=== PATIENT | female | born 1965 | race Caucasian/White ===

== ENCOUNTER 2019-10-26 11:44 | Outpatient (CLI) | payer OTHER, SELFPAY ==
--- NOTE | 2019-10-26 | XR_ITS ---
WS: [id number] LEFT CALCANEUS TECHNIQUE: Lateral and tangential view. HISTORY: ACHILLES TENDINOSIS COMPARISON: None available. No fracture. Hypertrophic bone formation and osteophyte formation involving the Achilles tendon attac hment to the calcaneus. There is also adjacent soft tissue swelling associated with the retrocalcanea l soft tissues suggesting tendinitis. XR/XR calcaneus LT min 2V [id number] IMPRESSION: Findings consistent with Achilles insertional tendinitis.
== END 2019-10-26 11:45 | disposition home or self-care (01) ==
LOC: RADOUTREAD 15:15
PROVIDERS: Family Provider Family Medicine; PCP Family Medicine; Visit Provider Family Medicine
DX: Z76.89 Persons encountering health services in other specified circumstances (principal)

== ENCOUNTER 2019-12-16 16:22 | Outpatient (CLI) | payer OTHER, SELFPAY | END 2019-12-16 16:23 | disposition home or self-care (01) | LOC: SPT 16:23 | PROVIDERS: Family Provider Family Medicine; PCP Family Medicine; Visit Provider Podiatrist Foot & Ankle Surgery | DX: Z46.89 Encounter for fitting and adjustment of other specified devices (principal); M76.62 Achilles tendinitis, left leg | CPT/HCPCS: L4361 ==

== ENCOUNTER → 2020-03-30 16:21 | Outpatient (BNVA) | payer OTHER, SELFPAY | PROVIDERS: Family Provider Family Medicine; PCP Family Medicine; Visit Provider Podiatrist Foot & Ankle Surgery | DX: M76.62 Achilles tendinitis, left leg (principal) | CPT/HCPCS: 73650 ==

== ENCOUNTER 2020-04-07 10:24 | Outpatient (RCR) | payer OTHER, SELFPAY | END 2020-05-06 23:59 | disposition home or self-care (01) | LOC: SPT 10:24 | PROVIDERS: PCP Family Medicine; Referring Provider Podiatrist Foot & Ankle Surgery; Visit Provider Podiatrist Foot & Ankle Surgery | DX: M76.62 Achilles tendinitis, left leg (principal) | CPT/HCPCS: 97033; 97035; 97110; 97140; 97161 ==

== ENCOUNTER 2020-05-28 19:55 | Emergency (ER) | payer OTHER, SELFPAY ==
[2020-05-28 20:55] VITALS: BP 189/116; PULSE 97; RESP 18; TEMP 36.8; O2SAT 96; BMI 39.1
--- NOTE | 2020-05-28 21:08 | W.ED.GENADLT ---
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 she said today her throat started hurting and she started feeling achy she is not running a fever not any loss of taste or smell she is wants make sure that she does not have covid complaint: Muscle aches Onset (ago): hour(s) Associated symptoms: Reports other (Sore throat muscle aches); Deny chest pain, dyspnea, headache(s), nausea, rash or vomiting Review of Systems Narrative: Has been around people with test positive for Cobin Const: Reports: body aches; Denies: fever(s) or chills Eyes: Denies: change in vision or blurry vision ENMT: Reports: throat pain; Denies: nasal congestion Card: Denies: chest pain or dyspnea on exertion Resp: Denies: dyspnea, productive cough or non-productive cough GI: Denies: abdominal pain, nausea or vomiting Musc: Denies: extremity pain Skin/Breast: Denies: rash Neuro: Denies: headache(s) Psych: Denies: anxiety or depression Ramakrishna/Lymph: Denies: easy bruising PFSH ED PFSH: Surgical History History of tonsillectomy Family History Mother Heart disease Dementia Diabetes Hypertension Lung disease Stroke Father Heart disease Family/Other Cancer Denies family history of CAD (coronary artery disease) Clotting disorder Hyperlipidemia Psychiatric illness Chronic kidney disease (CKD) Suicide Anesthesia complication Bleeding disorder Family history of premature coronary artery disease Social History Smoking and tobacco status: never smoked Alcohol intake: never Current occupational status: employed Physical Exam Const: COMMON NORMALS: no acute distress, average body habitus and patient oriented x3 HENMT: COMMON NORMALS: normocephalic HEAD & SCALP: normal to inspection and normocephalic FACE & SINUS: normal facial exam Eye: COMMON NORMALS: conjunctivae normal GENERAL EYE: appearance normal, both eyes and all related structures CONJUNCTIVA: Yes conjunctivae normal Neck/C-Spine: COMMON NORMALS: no JVD Chest: COMMONS NORMALS: normal inspection of the chest Resp: COMMON NORMALS: normal respiratory effort and clear to auscultation bilaterally AUSCULTATION: clear to auscultation bilaterally Cardio: COMMON NORMALS: no JVD, regular rate and regular rhythm RATE: regular rate RHYTHM: regular rhythm GI: COMMON NORMALS: Normal to inspection, nondistended, normoactive bowel sounds present Extremity: COMMON NORMALS: normal to inspection and full ROM Neuro: COMMON NORMALS: patient oriented x3 Course Vital Signs: Vital signs: Vital Signs Temperature 98.3 F 05/28/20 20:55 Pulse Rate 97 05/28/20 20:55 Respiratory Rate 18 05/28/20 20:55 Blood Pressure 189/116 05/28/20 20:55 Pulse Oximetry 96 05/28/20 20:55 Discharge Plan Discharge Prescriptions: No Action Women's 50 Plus Multivitamin 400 mcg-500 mg calcium-20 mcg tablet PO RF: 0 glucosamine HCl PO RF: 0 (DME) Cam walker Qty: 1 RF: 0 Coding Level of Care Code ED Parasitology Teacher for Chg Jenni
[2020-05-28 21:27] VITALS: BP 165/95; PULSE 74; RESP 18; O2SAT 99
[2020-05-30 12:03] LABS: Quest SARS-CoV-2 RNA NOT DETECTED (NOT DETECTED)
--- NOTE | 2020-05-30 16:20 | PC.NURSE ---
Pt called and notified of negative COVID results.
== END 2020-05-28 21:31 | disposition home or self-care (01) ==
PROVIDERS: Emergency Provider Nurse Practitioner Family; PCP Family Medicine
DX: J02.9 Acute pharyngitis, unspecified (principal)
CPT/HCPCS: 12345; 36415; 87635; 99282

== ENCOUNTER 2020-05-29 15:34 | Emergency (ER) | payer OTHER, SELFPAY ==
[2020-05-29 15:53] VITALS: BP 175/85; PULSE 95; RESP 18; TEMP 37.2; O2SAT 97; BMI 39.1
--- NOTE | 2020-05-29 15:55 | XRR_ITS ---
PROCEDURE INFORMATION: Exam: XR Chest, 1 View Exam date and time: 05/29/2020 4:17 PM Age: 54 years old Clinical indication: Cough and shortness of breath. TECHNIQUE: Imaging protocol: XR of the chest Views: 1 view. COMPARISON: CR Chest 1 [place] [id number] 09/07/2016 2:29 PM FINDINGS: Lungs: No focal peripheral lung consolidation, air bronchogram formation, or silhouette sign. Pleural space: No pleural effusion or pneumothorax. Heart/Mediastinum: The cardiac silhouette is not enlarged. The mediastinal contours are normal. Bones/joints: No acute osseous abnormality. XR/XR chest 1V portable [id number] IMPRESSION: No pneumonia.
--- NOTE | 2020-05-29 15:56 | ED_ITS ---
HPI - SOB/Dyspnea General: Chief Complaint: Shortness of Breath/Dyspnea Stated Complaint: sob Time Seen by Provider: 05/29/20 15:50 Source: patient Mode of arrival: ambulatory Limitations: no limitations History of Present Illness: HPI Narrative: Anju is a 54-year-old female states she has had a cough along with shortness of breath over the last 3 days. Patient has had COVID exposure. She was seen here last night had a swab and results are not back. She states she is continued to cough and does have dyspnea. Patient's been afebrile. Her oxygen saturation here is 98% on room air. She is in no distress at this time. MD elicited complaint: shortness of breath Associated symptoms: Deny abdominal pain, chest pain, fever(s), nausea or vomiting Review of Systems Const: Denies: fever(s), chills, body aches or change in appetite Eyes: Denies: blurry vision or eye discomfort ENMT: Denies: throat pain or dental pain Card: Denies: chest pain Resp: Reports: dyspnea and non-productive cough GI: Denies: abdominal pain, nausea, vomiting or diarrhea : Denies: dysuria Musc: Denies: neck pain or back pain Skin/Breast: Denies: rash Neuro: Denies: headache(s) Psych: Denies: depression Ramakrishna/Lymph: Denies: easy bruising All/Imm: Denies: urticaria PFSH ED PFSH: Surgical History History of tonsillectomy Family History Mother Heart disease Dementia Diabetes Hypertension Lung disease Stroke Father Heart disease Family/Other Cancer Denies family history of CAD (coronary artery disease) Clotting disorder Hyperlipidemia Psychiatric illness Chronic kidney disease (CKD) Suicide Anesthesia complication Bleeding disorder Family history of premature coronary artery disease Social History Smoking and tobacco status: never smoked Alcohol intake: never Current occupational status: employed Physical Exam Const: COMMON NORMALS: no acute distress, patient oriented x3 and healthy appearing HENMT: COMMON NORMALS: normocephalic and atraumatic HEAD & SCALP: normocephalic and atraumatic Eye: COMMON NORMALS: Equal, round and reactive pupils present and EOMs intact bilaterally PUPIL: Yes Equal, round and reactive pupils present Neck/C-Spine: COMMON NORMALS: full ROM and supple Chest: COMMONS NORMALS: normal inspection of the chest and normal palpation of entire chest wall Resp: COMMON NORMALS: normal respiratory effort, No retractions, No use of accessory muscles and clear to auscultation bilaterally AUSCULTATION: clear to auscultation bilaterally Cardio: COMMON NORMALS: regular rate, regular rhythm and No murmurs present (Cardio) RATE: regular rate RHYTHM: regular rhythm GI: COMMON NORMALS: Normal to inspection, nondistended, normoactive bowel sounds present, Soft to palpation, non-tender and no masses PALPATION: Yes Soft to palpation Extremity: COMMON NORMALS: normal to inspection and full ROM Neuro: COMMON NORMALS: patient oriented x3, moves all extremities and no focal motor deficits Psych: COMMON NORMALS: mental status grossly normal, Normal thought process present and cooperative THOUGHT PROCESS: Normal thought process present Skin: COMMON NORMALS: no rashes or lesions noted and no wounds GENERAL SKIN EXAM: no rashes or lesions noted Course Vital Signs: Vital signs: Vital Signs Temperature 98.9 F 05/29/20 15:53 Pulse Rate 95 05/29/20 15:53 Respiratory Rate 18 05/29/20 15:53 Blood Pressure 175/85 05/29/20 15:53 Pulse Oximetry 97 05/29/20 15:53 MDM - SOB/Dyspnea MDM Narrative: Medical decision making narrative: Patient presents here with dyspnea and was tested for coverage yesterday. Patient's pulse ox here is normal and blood work and x-ray are normal as well. Patient given Decadron here. She is to follow-up with her testing which should result tomorrow. She is not in any distress and is stable for discharge. She is return if worsening. Lab Data: Labs: Lab Results 05/29/20 05/29/20 Range/Units 16:45 16:45 WBC 10.3 H (4.0-10.0) 10^3/ uL RBC 4.41 (4.1-5.3) 10^6/u L Hgb 13.2 (11.5-15.3) g/dL Hct 41.1 (37.0-47.0) % MCV 93.2 (81-99) fL MCH 29.9 (28.0-34.0) pg MCHC 32.1 (30.0-36.0) g/dL RDW 13.5 (12.1-15.1) % Plt Count 286 (130-400) 10^3/c mm MPV 10.0 (7.4-10.4) fL Neut % (Auto) 64.6 % Lymph % (Auto) 24.7 % [place] % (Auto) 7.4 % Eos % (Auto) 1.9 % Baso % (Auto) 1.0 % Neut # (Auto) 6.68 (1.8-7.7) 10^3/u L Lymph # (Auto) 2.6 (0.8-4.8) 10^3/u L [place] # (Auto) 0.8 (0.2-0.9) 10^3/u L Eos # (Auto) 0.2 (0.0-0.8) 10^3/u L Baso # (Auto) 0.1 (0.0-0.1) 10^3/u L Nucleated RBC % (a uto) 0 % Nucleated RBCs # 0.0 /100WBC Sodium 136 (136-145) mmol/L Potassium 4.0 (3.5-5.1) mmol/L Chloride 104 (98-107) mmol/L Carbon Dioxide 23 (22-29) mmol/L Anion Gap 13.0 (5-19) BUN 14 (6-20) mg/dL Creatinine 0.7 (0.5-0.9) mg/dL GFR Calculation 86.6 L (90-130) mL/min Glucose 112 (65-115) mg/dL Calculated Osmolal ity 279 L (285-295) mOsm/k g Calcium 9.2 (8.5-10.5) mg/dL Total Bilirubin 0.3 (0.15-1.2) mg/dL AST 22 (0-32) U/L ALT 22 (0-33) U/L Alkaline Phosphata se 92 (35-105) IU/L NT-Pro-B Natriuret Pep 57 (0-125) pg/mL Total Protein 6.8 (6.6-8.7) g/dL Albumin 3.9 (3.5-5.2) g/dL Globulin 2.9 (1.3-4.6) g/dL Imaging Data^: CXR: Attestation: I personally reviewed and interpreted this imaging study as follows: My impression: No acute abnormality Discharge Plan Discharge Patient Disposition: Home Condition: Stable Prescriptions: No Action Women's 50 Plus Multivitamin 400 mcg-500 mg calcium-20 mcg tablet 1 tab PO DAILY RF: 0 (DME) Cam walker Qty: 1 RF: 0 Tylenol 325 mg Tablet 325 - 650 mg PO QID PRN (Reason: PAIN/FEVER) RF: 0 Discharge Orders: Discharge Order (Routine); Ordered 05/29/20 Ordered By: Carolyn Garcia Referrals: Dewayne Rai MD [Primary Care Provider] - 4-7 days Discharge Diet: Advance as tolerated Discharge Activity: Resume usual activity Patient Instructions: Upper Respiratory Infection (ED) Coding Level of Care Code ED Ceramic Chemist for Chg Fwd Exam Comprehensive
[2020-05-29 16:55] LABS: Basophils # 0.1 10^3/uL (0.0-0.1); Eosinophils # 0.2 10^3/uL (0.0-0.8); Eosinophils % 1.9 %; Hematocrit 41.1 % (37.0-47.0); Hemoglobin 13.2 g/dL (11.5-15.3); Lymphocytes # 2.6 10^3/uL (0.8-4.8); Lymphocytes % 24.7 %; Mean Corpuscular HGB Conc 32.1 g/dL (30.0-36.0); Mean Corpuscular Hemoglobin 29.9 pg (28.0-34.0); Mean Corpuscular Volume 93.2 fL (81-99); Monocytes # 0.8 10^3/uL (0.2-0.9); Monocytes % 7.4 %; Neutrophils # 6.68 10^3/uL (1.8-7.7); Neutrophils % 64.6 %; Nucleated Red Blood Cells % 0 %; Platelet Count 286 10^3/cmm (130-400); Red Blood Count 4.41 10^6/uL (4.1-5.3); Red Cell Distribution Width 13.5 % (12.1-15.1); White Blood Count 10.3 10^3/uL (4.0-10.0)
[2020-05-29 17:21] LABS: Alanine Aminotransferase 22 U/L (0-33); Albumin Level 3.9 g/dL (3.5-5.2); Alkaline Phosphatase 92 IU/L (35-105); Aspartate Amino Transferase 22 U/L (0-32); Blood Urea Nitrogen 14 mg/dL (6-20); Calcium 9.2 mg/dL (8.5-10.5); Carbon Dioxide 23 mmol/L (22-29); Chloride 104 mmol/L (98-107); Globulin 2.9 g/dL (1.3-4.6); Glomerular Filtration Rate 86.6 mL/min (90-130); Glucose 112 mg/dL (65-115); NT Pro B Type Natriuretic Pept 57 pg/mL (0-125); Osmolality Calculated 279 mOsm/kg (285-295); Sodium 136 mmol/L (136-145); Total Bilirubin 0.3 mg/dL (0.15-1.2); Total Protein 6.8 g/dL (6.6-8.7)
[2020-05-29 18:14] VITALS: BP 134/72; PULSE 72; RESP 18; O2SAT 98
== END 2020-05-29 18:15 | disposition home or self-care (01) ==
PROVIDERS: Emergency Provider Emergency Medicine; PCP Family Medicine
DX: R06.02 Shortness of breath (principal)
CPT/HCPCS: 12345; 36415; 71045; 80053; 83880; 85025; 96374; 99281; 99283

== ENCOUNTER 2021-04-27 14:41 | Emergency (ER) | payer OTHER, SELFPAY ==
[2021-04-27 14:47] VITALS: BP 160/93; PULSE 87; RESP 21; TEMP 36.9; O2SAT 96; BMI 39.1
[2021-04-27 14:56] VITALS: BP 160/93; PULSE 94; RESP 20; TEMP 36.9; O2SAT 94
--- NOTE | 2021-04-27 15:44 | USR_ITS ---
PROCEDURE INFORMATION: Exam: US Nonobstetric Pelvis; Complete Exam date and time: 04/27/2021 3:44 PM Age: 55 years old Clinical indication: Menstruation abnormalities; Postmenopausal bleeding; Patient HX: Last menses 5 years ago; Additional info: Vaginal bleeding. Sudden onset painless TECHNIQUE: Imaging protocol: Transabdominal pelvic nonobstetric ultrasound. Complete exam. Real time ultrasound with image documentation. COMPARISON: No relevant prior studies available. FINDINGS: Uterus/cervix: The uterus measures 6.7 x 3.7 x 4.0 cm. Endometrial thickness is 8.3 mm. 2.7 x 1.7 x 2.0 cm oval hyperechoic region within the endometrium of the lower uterine segment and possibly extending into the superior cervix. There are multiple small cystic regions within this structure measuring up to 5 mm and visible Doppler vascular flow. Right adnexa: The right ovary is not visualized. Left adnexa: The left ovary is not visualized. Intraperitoneal space: No intraperitoneal fluid. Urinary bladder: Normal. US/US pelvic with transvaginal IMPRESSION: 1. 2.7 x 1.7 x 2.0 cm oval hypoechoic region within the lower endometrium and possibly superior cervix, containing multiple cystic regions. This could represent a polyp or a focal region of endometrial hyperplasia. Correlation with the patient's recent biopsy results recommended. 2. Nonvisualized ovaries.
[2021-04-27 16:07] LABS: Basophils # 0.1 10^3/uL (0.0-0.1); Basophils % 0.8 %; Eosinophils # 0.1 10^3/uL (0.0-0.8); Eosinophils % 0.8 %; Hematocrit 40.3 % (37.0-47.0); Hemoglobin 12.8 g/dL (11.5-15.3); Lymphocytes # 1.8 10^3/uL (0.8-4.8); Lymphocytes % 17.2 %; Mean Corpuscular HGB Conc 31.8 g/dL (30.0-36.0); Mean Corpuscular Hemoglobin 29.2 pg (28.0-34.0); Mean Platelet Volume 10.6 fL (7.4-10.4); Monocytes # 0.6 10^3/uL (0.2-0.9); Monocytes % 5.8 %; Neutrophils # 7.65 10^3/uL (1.8-7.7); Nucleated Red Blood Cells % 0 %; Platelet Count 292 10^3/cmm (130-400); Red Blood Count 4.38 10^6/uL (4.1-5.3); Red Cell Distribution Width 13.7 % (12.1-15.1); White Blood Count 10.2 10^3/uL (4.0-10.0)
[2021-04-27 16:19] LABS: Alanine Aminotransferase 18 U/L (0-33); Albumin Level 4.1 g/dL (3.5-5.2); Alkaline Phosphatase 104 IU/L (35-105); Anion Gap 16.2 (5-19); Aspartate Amino Transferase 18 U/L (0-32); Blood Urea Nitrogen 12 mg/dL (6-20); Carbon Dioxide 21 mmol/L (22-29); Chloride 101 mmol/L (98-107); Creatinine Clr Calc Pharmacy 115.2305; Globulin 2.4 g/dL (1.3-4.6); Glomerular Filtration Rate 86.2 mL/min (90-130); Glucose 151 mg/dL (65-115); Osmolality Calculated 281 mOsm/kg (285-295); Potassium 4.2 mmol/L (3.5-5.1); Sodium 134 mmol/L (136-145); Total Bilirubin 0.3 mg/dL (0.15-1.2); Total Protein 6.5 g/dL (6.6-8.7)
--- NOTE | 2021-04-27 16:34 | W.ED.FEMALGU ---
HPI - Female Genitourinary General: Chief complaint: Vaginal Bleeding Stated complaint: VAGINAL BLEED Time Seen by Provider: 04/27/21 14:53 Source: patient Mode of arrival: EMS Limitations: no limitations History of Present Illness: HPI Narrative: Patient is a 55-year-old female who is 5 years postmenopausal and who presents to the emergency department with vaginal bleeding that started yesterday. She said it started yesterday and has not stopped since. In the last 24 hours she has used about 10 pads in total. She has associated lightheadedness. She went to see the hybrid technologist today and she says some tissue was taken out of her vagina following which she felt very faint and the hybrid technologist then called for an ambulance to bring her to the emergency department to be evaluated. She told the bridge design engineer that she was saturating 4 pads an hour but she told me emphatically that she has used about 10 pads in the last 24 hours. MD elicited complaint: vaginal bleeding Onset (ago): day(s) (1) Severity: moderate Quality of pain: other (painless) Vaginal discharge: none Vaginal bleeding: moderate Exacerbating factors: none Relieving factors: none Associated symptoms: Reports vaginal bleeding and weakness; Deny abdominal pain, short of breath, fevers/chills, headache(s), nausea, rash, seizures, syncope or vaginal discharge Treatment prior to arrival: none Patient : No Review of Systems General: Reports: 10 or more systems reviewed and unremarkable except in HPI and below Card: Denies: syncope GI: Denies: abdominal pain or nausea : Denies: vaginal discharge Neuro: Denies: headache(s) [facility] ED PFSH: Surgical History (Reviewed 04/27/21 @ 16:53 by Cesia Harrington MD, [facility]) History of tonsillectomy Family History (Reviewed 04/27/21 @ 16:53 by Cesia Harrington MD, [facility] [place]) Mother Heart disease Dementia Diabetes Hypertension Lung disease Stroke Father Heart disease Family/Other Cancer Denies family history of CAD (coronary artery disease) Clotting disorder Hyperlipidemia Psychiatric illness Chronic kidney disease (CKD) Suicide Anesthesia complication Bleeding disorder Family history of premature coronary artery disease Social History (Reviewed 04/27/21 @ 16:53 by Cesia Harrington MD, [facility] [place]) Smoking and tobacco status: never smoked Alcohol intake: never Current occupational status: employed Physical Exam Const: COMMON NORMALS: no acute distress, average body habitus, patient oriented x3, no limitations, healthy appearing, alert and well nourished HENMT: COMMON NORMALS: normocephalic, atraumatic and moist oral mucous membranes HEAD & SCALP: normocephalic and atraumatic Eye: COMMON NORMALS: Equal, round and reactive pupils present, EOMs intact bilaterally, conjunctivae normal and no scleral icterus CONJUNCTIVA: Yes conjunctivae normal PUPIL: Yes Equal, round and reactive pupils present Neck/C-Spine: COMMON NORMALS: no meningeal signs and no JVD Resp: COMMON NORMALS: normal respiratory effort, No retractions, No use of accessory muscles, clear to auscultation bilaterally and percussion normal AUSCULTATION: clear to auscultation bilaterally PERCUSSION: percussion normal Cardio: COMMON NORMALS: no JVD, regular rate, regular rhythm, S1 normal heart sound present, S2 normal heart sound present, No gallops present (Cardio), No clicks present (Cardio), No murmurs present (Cardio), No rub (Cardio) and Peripheral pulses 2+ throughout RATE: regular rate RHYTHM: regular rhythm HEART SOUNDS: S1 normal heart sound present and S2 normal heart sound present PERIPHERAL PULSES: Peripheral pulses 2+ throughout GI: COMMON NORMALS: Normal to inspection, nondistended, normoactive bowel sounds present, Soft to palpation, non-tender, No hepatosplenomegaly present, no masses and no bruits PALPATION: Yes Soft to palpation and Yes No hepatosplenomegaly present : SPECULUM EXAM - VAGINA: Yes vaginal bleeding OB/EXTERNAL & SPECULUM: vaginal bleeding Extremity: COMMON NORMALS: normal to inspection, full ROM, capillary refill normal, no calf tenderness and no pedal edema Neuro: COMMON NORMALS: patient oriented x3 SENSORIUM/ORIENTATION: Yes alert MENINGEAL SIGNS: Yes no meningeal signs Skin: COMMON NORMALS: no rashes or lesions noted, no wounds, turgor normal, no jaundice, no petechiae and no mottling GENERAL SKIN EXAM: no rashes or lesions noted and turgor normal Course Reevaluation(s): Reevaluation #1: Discussed her lab and imaging findings with her as well as my conversation with the bridge design engineer. Hemoglobin normal, ultrasound unremarkable for acute findings, bridge design engineer wants to see her in 2 weeks so she can discuss results of the endometrial biopsy with her. We will discharge her home with no new orders. She voiced understanding and is in agreement with the plan. Time: 17:58 Consultations: Consultation #1: Discussed the patient with Dr. Nuñez, bridge design engineer who saw this patient earlier today. She explained to me that she performed an endometrial biopsy on the patient and that because the patient had told that she was saturating 4 pads per hour she was concerned and sent her to the emergency department to be evaluated. I discussed her lab findings with the physician and she would like to see the patient in the office in 2 weeks to discuss the results of the endometrial biopsy with her. Time: 16:41 Vital Signs: Vital signs: Vital Signs Temperature 98.5 F 04/27/21 14:56 Pulse Rate 91 04/27/21 18:15 Respiratory Rate 18 04/27/21 18:15 Blood Pressure 147/81 04/27/21 17:07 Pulse Oximetry 96 04/27/21 18:15 MDM - Female MDM Narrative: Medical decision making narrative: 55-year-old female patient who presents to the emergency department with postmenopausal bleeding. Evaluation in the emergency department is unremarkable including normal hemoglobin. She has been seen by the bridge design engineer earlier today and an endometrial biopsy has been performed on this patient. She is discharged home with no new orders. Medical Records: Attestation: I reviewed the patient's medical records. Lab Data: Attestation: I reviewed the patient's lab results. Labs: Lab Results 04/27/21 04/27/21 04/27/21 Range/Units 15:20 15:20 15:20 WBC 10.2 H (4.0-10.0) 10^3/ uL RBC 4.38 (4.1-5.3) 10^6/u L Hgb 12.8 (11.5-15.3) g/dL Hct 40.3 (37.0-47.0) % MCV 92.0 (81-99) fL MCH 29.2 (28.0-34.0) pg MCHC 31.8 (30.0-36.0) g/dL RDW 13.7 (12.1-15.1) % Plt Count 292 (130-400) 10^3/c mm MPV 10.6 H (7.4-10.4) fL Neut % (Auto) 75.0 % Lymph % (Auto) 17.2 % [place] % (Auto) 5.8 % Eos % (Auto) 0.8 % Baso % (Auto) 0.8 % Neut # (Auto) 7.65 (1.8-7.7) 10^3/u L Lymph # (Auto) 1.8 (0.8-4.8) 10^3/u L [place] # (Auto) 0.6 (0.2-0.9) 10^3/u L Eos # (Auto) 0.1 (0.0-0.8) 10^3/u L Baso # (Auto) 0.1 (0.0-0.1) 10^3/u L Nucleated RBC % (a uto) 0 % Nucleated RBCs # 0.0 /100WBC PT (12.1-14.9) SECO NDS INR (0.8-1.2) Sodium 134 L (136-145) mmol/L Potassium 4.2 (3.5-5.1) mmol/L Chloride 101 (98-107) mmol/L Carbon Dioxide 21 L (22-29) mmol/L Anion Gap 16.2 (5-19) BUN 12 (6-20) mg/dL Creatinine 0.7 (0.5-0.9) mg/dL GFR Calculation 86.2 L (90-130) mL/min Glucose 151 H (65-115) mg/dL Estimat Average Gl ucose Hemoglobin A1c (4.0-6.0) % Calculated Osmolal ity 281 L (285-295) mOsm/k g Calcium 9.0 (8.5-10.5) mg/dL Total Bilirubin 0.3 (0.15-1.2) mg/dL AST 18 (0-32) U/L ALT 18 (0-33) U/L Alkaline Phosphata se 104 (35-105) IU/L Total Protein 6.5 L (6.6-8.7) g/dL Albumin 4.1 (3.5-5.2) g/dL Globulin 2.4 (1.3-4.6) g/dL TSH (0.27-4.20) uIU/ mL Blood Type O Negative Rho(D) Type Negative / 0 Antibody Screen Negative 0704/27/21 04/27/21 Range/Units 15:20 15:20 16:38 WBC (4.0-10.0) 10^3/ uL RBC (4.1-5.3) 10^6/u L Hgb (11.5-15.3) g/dL Hct (37.0-47.0) % MCV (81-99) fL MCH (28.0-34.0) pg MCHC (30.0-36.0) g/dL RDW (12.1-15.1) % Plt Count (130-400) 10^3/c mm MPV (7.4-10.4) fL Neut % (Auto) % Lymph % (Auto) % [place] % (Auto) % Eos % (Auto) % Baso % (Auto) % Neut # (Auto) (1.8-7.7) 10^3/u L Lymph # (Auto) (0.8-4.8) 10^3/u L [place] # (Auto) (0.2-0.9) 10^3/u L Eos # (Auto) (0.0-0.8) 10^3/u L Baso # (Auto) (0.0-0.1) 10^3/u L Nucleated RBC % (a uto) % Nucleated RBCs # /100WBC PT 13.80 (12.1-14.9) SECO NDS INR 1.03 (0.8-1.2) Sodium (136-145) mmol/L Potassium (3.5-5.1) mmol/L Chloride (98-107) mmol/L Carbon Dioxide (22-29) mmol/L Anion Gap (5-19) BUN (6-20) mg/dL Creatinine (0.5-0.9) mg/dL GFR Calculation (90-130) mL/min Glucose (65-115) mg/dL Estimat Average Gl ucose 120 Hemoglobin A1c 5.8 (4.0-6.0) % Calculated Osmolal ity (285-295) mOsm/k g Calcium (8.5-10.5) mg/dL Total Bilirubin (0.15-1.2) mg/dL AST (0-32) U/L ALT (0-33) U/L Alkaline Phosphata se (35-105) IU/L Total Protein (6.6-8.7) g/dL Albumin (3.5-5.2) g/dL Globulin (1.3-4.6) g/dL TSH 2.01 (0.27-4.20) uIU/ mL Blood Type Rho(D) Type Antibody Screen Imaging Data: US: Attestation: I personally reviewed and interpreted this imaging study as follows: Radiologist's impression: [address] [id number] ReportSigned Patient: Anju Obando #: [id number]: [id number]#:[id number]/Sex: 55 / FADM Date: 04/27/21Loc: ERRoom/Bed:Attending Dr: Ordering Provider/Ordering MD: Cesia Harrington MD, [facility] Date of Service: 04/27/21 Procedure(s): US pelvic with transvaginal Accession Number(s): [id number] Report Number: [id number] PROCEDURE INFORMATION: Exam: US Nonobstetric Pelvis; Complete Exam date and time: 04/27/2021 3:44 PM Age: 55 years old Clinical indication: Menstruation abnormalities; Postmenopausal bleeding; Patient HX: Last menses 5 years ago; Additional info: Vaginal bleeding. Sudden onset painless TECHNIQUE: Imaging protocol: Transabdominal pelvic nonobstetric ultrasound. Complete exam. Real time ultrasound with image documentation. COMPARISON: No relevant prior studies available. FINDINGS: Uterus/cervix: The uterus measures 6.7 x 3.7 x 4.0 cm. Endometrial thickness is 8.3 mm. 2.7 x 1.7 x 2.0 cm oval hyperechoic region within the endometrium of the lower uterine segment and possibly extending into the superior cervix. There are multiple small cystic regions within this structure measuring up to 5 mm and visible Doppler vascular flow. Right adnexa: The right ovary is not visualized. Left adnexa: The left ovary is not visualized. Intraperitoneal space: No intraperitoneal fluid. Urinary bladder: Normal. US/US pelvic with transvaginal IMPRESSION: 1. 2.7 x 1.7 x 2.0 cm oval hypoechoic region within the lower endometrium and possibly superior cervix, containing multiple cystic regions. This could represent a polyp or a focal region of endometrial hyperplasia. Correlation with the patient's recent biopsy results recommended. 2. Nonvisualized ovaries. Dictated By:Jose Miguel Borrego By:Jose Miguel Borrego Date/Time:04/27/211717DD/ 16 Discharge Plan Discharge Patient Disposition: Home Clinical Impression: Post-menopausal bleeding Condition: Stable Prescriptions: Continued Women's 50 Plus Multivitamin 400 mcg-500 mg calcium-20 mcg tablet 1 tab PO DAILY RF: 0 glucosamine HCl 500 mg tablet 500 mg PO DAILY RF: 0 acetaminophen [Tylenol] 325 mg Tablet 325 - 650 mg PO QID PRN (Reason: PAIN/FEVER) RF: 0 ProAir HFA 90 mcg/actuation Hfa Aerosol Inhaler 2 puff INHALATION QID PRN (Reason: SHORTNESS OF BREAH) RF: 0 Discharge Orders: Discharge ED (Routine); Ordered 04/27/21 Ordered By: Cesia Harrington Referrals: Desiree Nuñez MD [Physician] - 2 weeks Discharge Diet: Usual diet Discharge Activity: Increase activity as tolerated Patient Instructions: Abnormal Uterine Bleeding Activity Restrictions/Additional Instructions: Return for any new or worsening symptoms. Follow-up with Dr. Nuñez in 2 weeks. Call her office tomorrow to schedule an appointment. She wants to go over the results of the test that she performed in the office and the ultrasound done here in the emergency department with you. Continue your home medications. Coding Level of Care Code ED Hired Hand for Chg Fwd Exam Comprehensive
[2021-04-27 17:06] LABS: Thyroid Stimulating Hormone 2.01 uIU/mL (0.27-4.20)
[2021-04-27 17:07] VITALS: BP 147/81; PULSE 89; RESP 18; O2SAT 96
[2021-04-27 17:07] LABS: INR 1.03 (0.8-1.2)
[2021-04-27 18:14] VITALS: PULSE 91; RESP 18; O2SAT 96
[2021-04-27 18:15] VITALS: PULSE 91; RESP 18; O2SAT 96
[2021-04-27 19:10] LABS: Estmated Average Glucose 120; Hemoglobin A1C 5.8 % (4.0-6.0)
== END 2021-04-27 18:16 | disposition home or self-care (01) ==
PROVIDERS: Emergency Provider Family Medicine; PCP Family Medicine
DX: N95.0 Postmenopausal bleeding (principal)
CPT/HCPCS: 76830; 76856; 80053; 83036; 84443; 85025; 85610; 86850; 86900; 88175; 88305; 99283

== ENCOUNTER → 2021-05-10 13:36 | Outpatient (BNVA) | payer OTHER, SELFPAY | PROVIDERS: PCP Family Medicine; Visit Provider Obstetrics & Gynecology | DX: N95.0 Postmenopausal bleeding (principal) | CPT/HCPCS: 76830 ==

== ENCOUNTER → 2021-05-19 09:40 | Outpatient (BNVA) | payer OTHER, SELFPAY | PROVIDERS: PCP Family Medicine; Visit Provider Obstetrics & Gynecology | DX: R87.610 Atypical squamous cells of undetermined significance on cytologic smear of cervix (ASC-US) (principal); R87.810 Cervical high risk human papillomavirus (HPV) DNA test positive | CPT/HCPCS: 88305 ==

== ENCOUNTER → 2021-06-09 10:24 | Outpatient (BNVA) | payer OTHER, SELFPAY | PROVIDERS: PCP Family Medicine; Visit Provider Obstetrics & Gynecology | DX: Z01.818 Encounter for other preprocedural examination (principal); Z20.822 Contact with and (suspected) exposure to COVID-19; N85.8 Other specified noninflammatory disorders of uterus; N95.0 Postmenopausal bleeding | CPT/HCPCS: 87635 ==

== ENCOUNTER 2021-06-13 09:24 | Day surgery (SDC) | payer OTHER, SELFPAY ==
[2021-06-09 15:22] VITALS: BMI 39.9
[2021-06-13] VITALS (8 sets, daily range): BP systolic 106–164; BP diastolic 72–106; PULSE 82–103; RESP 17–20; TEMP 36–36.5; O2SAT 90–99
--- NOTE | 2021-06-13 10:13 | W.PM.OPSUD ---
Surgery/Procedure H&P Update DATE OF PROCEDURE: June 13, 2021 DATE H&P PERFORMED: 06/09/21 H&P UPDATE INFORMATION: I have reviewed H&P completed within last 30 days, I have examined patient prior to procedure and No changes to prior documentation PREOP DIAGNOSIS: uterine mass PLANNED PROCEDURE: Operation Date: 06/13/21 11:35 Proposed Procedures p Hysteroscopy w/ Myosure(Not Applicable) - Desiree Nuñez MD s Dilation And Curettage (D&C)(Not Applicable) - Desiree Nuñez MD
[2021-06-13] MEDS: sodium chloride 0.9% 1,000 ML 30 ML IV (10:18)
--- NOTE | 2021-06-13 10:29 | ANES.PREANE2 ---
Pre-Anesthetic Assessment Pre-Anesthetic Assessment: Height/Weight: Height 1.7 m Weight 115.666 kg Temp Pulse Resp BP Pulse Ox 97.7 F 83 18 161/106 98 06/13/21 09:43 06/13/21 09:43 06/13/21 09:43 06/13/21 09:43 06/13/21 09:43 Preop Diagnosis: uterine mass Proposed Procedure: Operation Date: 06/13/21 11:35 Proposed Procedures p Hysteroscopy w/ Myosure(Not Applicable) - Desiree Nuñez MD s Dilation And Curettage (D&C)(Not Applicable) - Desiree Nuñez MD Familial anesthetic complications: None Was Beta Shayla taken within 24 hours: N/A Was Clonidine taken within 24 hours: N/A Last intake: Intake Last Liquid Date 06/12/21 Last Liquid Time 20:00 Last Solid Date 06/12/21 Last Solid Time 19:00 Social: Social History: No alcohol and No tobacco Exam: Pre-Anes Outpt Exam: alert, oriented x 3, clear to auscultation bilaterally and regular rate & rhythm Airway: Cervical ROM: WNL MP: 2 Dentition: Partials Pulmonary: Comments: covid may 2020, hx bronchitis Metabolic: Metabolic: Morbid obesity Anesthetic Plan: ASA status: 2 Anesthesia: General Risk of > 500 ml blood loss (7ml/kg in children): No Meds/Allergies Current Medications: Current Medications Generic Name Dose Route Start Last Admin Trade Name Freq PRN Reason Stop Dose Admin Sodium Chloride 1,000 mls @ 30 ml s/hr 06/13/21 09:45 06/13/21 10:18 Sodium Chloride 0.9% IV 06/14/21 09:44 30 mls/hr .Q24H DAY Administration PFSH Anesthesia PFSH: Surgical History History of tonsillectomy Family History Mother Heart disease Dementia Diabetes Hypertension Lung disease Stroke Father Heart disease Family/Other Cancer Denies family history of CAD (coronary artery disease) Clotting disorder Hyperlipidemia Psychiatric illness Chronic kidney disease (CKD) Suicide Anesthesia complication Bleeding disorder Family history of premature coronary artery disease Social History Smoking and tobacco status: never smoked Alcohol intake: never Current occupational status: employed Data Anesthesia CBC & Chem 7: 06/13/21 10:14 06/13/21 10:14 Cardiac Studies: No Data to Display
[2021-06-13 10:34] LABS: Basophils # 0.1 10^3/uL (0.0-0.1); Basophils % 0.9 %; Eosinophils # 0.2 10^3/uL (0.0-0.8); Eosinophils % 2.7 %; Hematocrit 43.2 % (37.0-47.0); Hemoglobin 13.7 g/dL (11.5-15.3); Lymphocytes # 1.9 10^3/uL (0.8-4.8); Lymphocytes % 22.1 %; Mean Corpuscular HGB Conc 31.7 g/dL (30.0-36.0); Mean Corpuscular Hemoglobin 29.1 pg (28.0-34.0); Mean Corpuscular Volume 91.7 fl (81-99); Mean Platelet Volume 10.7 fL (7.4-10.4); Monocytes # 0.6 10^3/uL (0.2-0.9); Monocytes % 6.9 %; Neutrophils # 5.88 10^3/uL (1.8-7.7); Neutrophils % 66.9 %; Nucleated Red Blood Cells % 0 %; Platelet Count 311 10^3/cmm (130-400); Red Blood Count 4.71 10^6/uL (4.1-5.3); Red Cell Distribution Width 13.4 % (12.1-15.1); White Blood Count 8.8 10^3/uL (4.0-10.0)
[2021-06-13 11:50] LABS: Blood Urea Nitrogen 10 mg/dL (6-20); Calcium 8.7 mg/dL (8.5-10.5); Carbon Dioxide 24 mmol/L (22-29); Glomerular Filtration Rate 127.2 mL/min (90-130); Glucose 85 mg/dL (65-115); Osmolality Calculated 286 mOsm/kg (285-295); Sodium 139 mmol/L (136-145)
--- NOTE | 2021-06-13 12:16 | P.PCN_ITS ---
PACU note PACU note: VSS, Good respiratory effort, report to CLIENT ADVISOR Post-Anesthesia Exam: awake
--- NOTE | 2021-06-13 12:16 | PM.PACU ---
PACU note PACU note: VSS, Good respiratory effort, report to INSTITUTION LIBRARIAN Post-Anesthesia Exam: awake
--- NOTE | 2021-06-13 12:34 | P.OP_ITS ---
Operative Report Date of procedure: June 13, 2021 Pre-op Diagnosis: uterine mass Post-op diagnosis: same Post-op Findings: Large cervical polyp. Excessive uterine tissue Procedure Done: hysteroscopy, dilation and curettage with myosure Specimens removed/disposition: endometrial curettings to pathology Surgeon: Desiree Nuñez Anesthesia: General Estimated blood loss (mL): 5 IV fluids (mL): 500 Complications: none Findings: 8 week sized uterus. Large endocervical polyp, excessive uterine tissue. hysteroscopy deficit 440 ml Condition: stable Disposition: PACU Brief History: The patient presented for abnormal uterine bleeding. She had an ultrasound which showed a uterine mass. Procedure: The patient was taken to the operating room where monitored anesthesia was administered and to be adequate. She was prepped and draped in the normal sterile fashion in the dorsal lithotomy position in Horacio stirrups. A weighted speculum was placed into the vagina and the anterior lip of the cervix grasped with a single-tooth tenaculum. The uterus was sounded to 8 cm. The cervix was dilated to 10 Romansh. The hysteroscope was advanced into the endometrial cavity. There was a large cervical polyp. In the rest, there was excessive endometrial tissue. Visualized. The MyoSure device was activated and the tissue was removed. Pictures were taken pre and post procedure. All instruments were removed. The patient tolerated the procedure well. Sponge lap and needle counts were correct x3. She was taken to the recovery room in stable condition.
--- NOTE | 2021-06-13 12:39 | P.DS_ITS ---
Discharge Providers Date of Discharge: June 13, 2021 Attending Provider at Discharge: Desiree Nuñez MD Primary Care Provider: Dewayne Rai MD Reason for Visit Reason for Visit: hysteroscopy Hospital Course Hospital Course The patient was admitted for surgery. She did well postoperatively and was ready for discharge. Discharge Data Data Completed and Pending: Pending at discharge Category Date Time Status Basic Metabolic P annabella Routine Lab 06/13/21 10:59 Results Pathology: Surgic al [PTH] Routine Pth 06/13/21 12:16 Received Labs from last 24 hours 06/13/21 06/13/21 06/13/21 10:59 10:14 10:14 WBC 8.8 RBC 4.71 Hgb 13.7 Hct 43.2 MCV 91.7 MCH 29.1 MCHC 31.7 RDW 13.4 Plt Count 311 MPV 10.7 H Neut % (Auto) 66.9 Lymph % (Auto) 22.1 Citrus % (Auto) 6.9 Eos % (Auto) 2.7 Baso % (Auto) 0.9 Neut # (Auto) 5.88 Lymph # (Auto) 1.9 Citrus # (Auto) 0.6 Eos # (Auto) 0.2 Baso # (Auto) 0.1 Nucleated RBC % (a uto) 0 Nucleated RBCs # 0.0 Sodium 139 Cancelled Potassium Pending Cancelled Chloride 105 Cancelled Carbon Dioxide 24 Cancelled Anion Gap Pending Cancelled BUN 10 Cancelled Creatinine 0.5 Cancelled GFR Calculation 127.2 Cancelled Glucose 85 Cancelled Calculated Osmolal ity 286 Cancelled Calcium 8.7 Cancelled Vitals: Last Vital Signs Temp 97.4 F L 06/13/21 12:25 Pulse 82 06/13/21 12:34 Resp 18 06/13/21 12:34 BP 106/78 06/13/21 12:34 Pulse Ox 98 06/13/21 12:34 Discharge Plan Discharge Patient Disposition: Home Condition: Stable Prescriptions: Continued Women's 50 Plus Multivitamin 400 mcg-500 mg calcium-20 mcg tablet 1 tab PO DAILY RF: 0 glucosamine HCl 500 mg tablet 500 mg PO DAILY RF: 0 acetaminophen [Tylenol] 325 mg Tablet 325 - 650 mg PO QID PRN (Reason: PAIN/FEVER) RF: 0 albuterol sulfate [ProAir HFA] 90 mcg/actuation Hfa Aerosol Inhaler 2 puff INHALATION QID PRN (Reason: SHORTNESS OF BREAH) RF: 0 Discharge Orders: Discharge Order (Routine); Ordered 06/13/21 Ordered By: Desiree Nuñez Patient Instructions: OB D&C - C, OB Hysteroscopy - [facility] Discharge Attestations Time Spent in Discharge Care*: less than 30 min Quality Metrics Clinical Quality Measures During this hospital stay, did patient experience: None Coding Level of Care Code Acute Chg FW DC note
[2021-06-13 12:42] LABS: Chloride 104 mmol/L (98-107)
[2021-06-13 12:43] LABS: Anion Gap 15.4 (5-19); Potassium 4.4 mmol/L (3.5-5.1)
[2021-06-13] MEDS: acetaminophen 500 mg Tablet 1000 MG PO (13:20)
--- NOTE | 2021-06-13 15:36 | ANE.PACU2 ---
Inpatient post-anesthesia follow up: Airway intact: Yes Vital signs: Temperature 96.8 F Pulse Rate 95 Respiratory Rate 18 Blood Pressure 164/99 Pulse Oximetry 95 Oxygen Delivery Me thod Room Air Oxygen Flow Rate Fraction of Inspir ed Oxygen Hydration adequate: Yes Nausea and vomiting: No Pain level: 2 Mental status: Baseline
== END 2021-06-13 13:55 | disposition home or self-care (01) ==
PROVIDERS: PCP Family Medicine; Visit Provider Obstetrics & Gynecology
PROC: 0UDB8ZZ Extraction of Endometrium, Via Natural or Artificial Opening Endoscopic (ICD-10-PCS; CPT 58558; principal; 2021-06-13 11:25)
PROC: (CPT 58120; 2021-06-13 11:25)
DX: N84.0 Polyp of corpus uteri (principal); Z86.16 Personal history of COVID-19; E66.01 Morbid (severe) obesity due to excess calories; Z68.39 Body mass index [BMI] 39.0-39.9, adult
CPT/HCPCS: 58558; 80048; 85025; 88305; 96365; J0330; J0690; J1100; J2405; J2704; J3010; J3490; J7030

== ENCOUNTER → 2021-11-20 16:45 | Outpatient (BNVA) | payer OTHER, SELFPAY | PROVIDERS: PCP Family Medicine; Visit Provider Obstetrics & Gynecology | DX: R87.620 Atypical squamous cells of undetermined significance on cytologic smear of vagina (ASC-US) (principal); R87.811 Vaginal high risk human papillomavirus (HPV) DNA test positive; Z12.4 Encounter for screening for malignant neoplasm of cervix | CPT/HCPCS: 87624 ==

== ENCOUNTER 2022-03-08 10:49 | Outpatient (CLI) | payer OTHER, SELFPAY ==
--- NOTE | 2022-03-08 10:58 | MM_ITS ---
WS: [id number] BILATERAL 3D TOMOSYNTHESIS DIGITAL DIAGNOSTIC MAMMOGRAPHY WITH CAD CLINICAL INFORMATION: RT BREAST LUMP COMPARISON: None. TECHNIQUE: Bilateral CC, MLO, and ML views. FINDINGS: Scattered fibroglandular densities bilaterally. Palpable marker upper inner RIGHT breast. No underlyi ng parenchymal lesions on the mammogram. Ultrasound RIGHT breast is pending. LEFT breast is unremarkable. ULTRASOUND BREAST RIGHT TECHNIQUE: Ultrasound right breast focused area of concern. CLINICAL INFORMATION: RT BREAST LUMP COMPARISON: None. FINDINGS: Ultrasound RIGHT breast in the area of palpable concern at the 1:00 position 6 cm from the nipple. No rmal underlying parenchymal tissue. No cystic or solid lesions. No lesions to target for biopsy. MM/[place] [id number] IMPRESSION: BI-RADS: 2-Benign FOLLOW UP: 1 Year Follow-up Recommend return to annual screening mammography.
== END 2022-03-08 10:50 | disposition home or self-care (01) ==
PROVIDERS: PCP Family Medicine; Visit Provider Obstetrics & Gynecology
DX: N63.12 Unspecified lump in the right breast, upper inner quadrant (principal)
CPT/HCPCS: 76642; 77062

== ENCOUNTER → 2023-08-28 13:13 | Outpatient (BNVA) | payer OTHER, SELFPAY | PROVIDERS: PCP Family Medicine; Visit Provider Nurse Practitioner Women's Health | DX: R87.620 Atypical squamous cells of undetermined significance on cytologic smear of vagina (ASC-US) (principal); R87.811 Vaginal high risk human papillomavirus (HPV) DNA test positive; N64.4 Mastodynia; Z01.419 Encounter for gynecological examination (general) (routine) without abnormal findings | CPT/HCPCS: 87624 ==

== ENCOUNTER 2023-10-02 08:43 | Outpatient (CLI) | payer OTHER, SELFPAY ==
--- NOTE | 2023-10-02 08:45 | MM_ITS ---
WS: [id number] BILATERAL 3D TOMOSYNTHESIS DIGITAL SCREENING MAMMOGRAPHY WITH CAD CLINICAL INFORMATION: screening HISTORY: Screening mammogram. No current complaints. COMPARISON: 2021 TECHNIQUE: Bilateral CC and MLO views. FINDINGS: Scattered fibroglandular densities bilaterally. No suspicious focal mass, asymmetry, calcifications, or architectural distortion. No evidence of malignancy. IMPRESSION: MM/[place] [id number] BI-RADS: 1-Negative FOLLOW UP: 1 Year Follow-up Recommend return to annual screening mammography.
== END 2023-10-02 08:44 | disposition home or self-care (01) ==
LOC: RAD 08:43
PROVIDERS: PCP Family Medicine; Visit Provider Nurse Practitioner Women's Health
DX: Z12.31 Encounter for screening mammogram for malignant neoplasm of breast (principal); N64.4 Mastodynia
CPT/HCPCS: 77063; 77067; 87624

== ENCOUNTER → 2024-09-02 12:40 | Outpatient (BNVA) | payer OTHER, SELFPAY | PROVIDERS: PCP Family Medicine; Visit Provider Nurse Practitioner Women's Health | DX: Z01.419 Encounter for gynecological examination (general) (routine) without abnormal findings (principal) | CPT/HCPCS: 80053; 82306; 83036; 84443; 85025 ==

== ENCOUNTER 2024-10-05 09:16 | Outpatient (CLI) | payer OTHER, SELFPAY ==
--- NOTE | 2024-10-05 09:30 | MM_ITS ---
WS: [id number] Bilateral screening 3D tomosynthesis digital mammogram, 10/05/2024 9:19 AM Clinical Data: Z12.31 - Encounter for screening mammogram for malignant ... Comparison: 10/02/2023, 03/08/2022. Findings: No spiculated masses or clustered calcifications are seen. There are no secondary signs of carcinoma . MM/MM scr BI tomosynthesis [id number] Impression: Negative bilateral mammogram unchanged. Recommend annual screening mammograms. BIRADS: 1 - Negative. FOLLOW UP: 1 Year Follow-up DENSITY: There are scattered areas of fibroglandular density. The CAD clerical car checker was used
== END 2024-10-05 09:17 | disposition home or self-care (01) ==
LOC: RAD 09:17
PROVIDERS: PCP Family Medicine; Visit Provider Nurse Practitioner Women's Health
DX: Z12.31 Encounter for screening mammogram for malignant neoplasm of breast (principal); Z01.419 Encounter for gynecological examination (general) (routine) without abnormal findings; R92.323 Mammographic fibroglandular density, bilateral breasts
CPT/HCPCS: 77063; 77067